=== PATIENT | male | born 1990 ===

== ENCOUNTER 2024-04-02 11:36 | Emergency (ER) | payer OTHER, SELFPAY ==
[2024-04-02 11:38] VITALS: BP 132/90; PULSE 96; RESP 16; TEMP 37.4; O2SAT 96
[2024-04-02 11:40] VITALS: O2SAT 96
== END 2024-04-02 12:15 | disposition left against medical advice (07) ==
PROVIDERS: Emergency Provider Emergency Medicine; PCP Family Medicine
DX: Z53.21 Procedure and treatment not carried out due to patient leaving prior to being seen by health care provider (principal)
CPT/HCPCS: 99199